=== PATIENT | male | born 1940 | race Caucasian/White ===

== ENCOUNTER 2016-12-05 17:32 | Emergency (ER) | payer MEDICARE, OTHER ==
--- NOTE | 2016-12-05 17:56 | ERNOTE ---
<Isael Temple - Last Filed: 12/05/16 19:40> TRA [facility] - General Date of Service: 12/05/16 Stated Complaint: UNKNOWN Time Seen by Provider: 12/05/16 17:39 Source: patient, EMS, RN notes reviewed Exam Limitations: other - patient's speech is difficult to understand. I suspect this is chronic. We will be calling the [facility] to get further detail - History of Present Illness Initial Comments: 76-year-old white male brought by EMS local [facility] due to fall. Patient apparently fell out of his bed earlier this morning. He complains of pain all over his whole body. long-term reports he is transferred to the [facility] emergency department for evaluation. The facility Facility performed lumbar, right hip, left hip, thoracic x-rays and lab tests. there Were no reported fractures. It is treated for chronic pain and had his usual dose of hydrocodone midday and another tablet late afternoon. long-term states that he seems to be somewhat lethargic and that his abdomen is distended. There is no reported loss of consciousness. There is no reports of head or neck injury. Occurred: this morning Allergies/Adverse Reactions: Allergies egg Allergy (Verified 12/05/16 18:14) lithium Allergy (Verified 12/05/16 18:14) naproxen Allergy (Verified 12/05/16 18:14) Penicillins Allergy (Verified 12/05/16 18:14) tomato Allergy (Verified 12/05/16 18:14) Home Medications: Home Medications Medication Instructions Recorded Last Taken Chlorpromazine HCl 100 mg PO TID 12/05/16 Unknown Citalopram Hydrobromide 20 mg PO DAILY 12/05/16 Unknown [Citalopram HBr] Divalproex Sodium 500 mg PO DAILY 12/05/16 Unknown Donepezil HCl 10 mg PO DAILY 12/05/16 Unknown Gabapentin 800 mg PO QID 12/05/16 Unknown Haloperidol [Haldol] 5 mg PO BID 12/05/16 Unknown Hydrocodone/Acetaminophen 1 each PO QID 12/05/16 Unknown [Hydrocodon-Acetaminoph 7.5-325] Levothyroxine Sodium [Synthroid] 25 mcg PO DAILY 12/05/16 Unknown Lurasidone HCl [Latuda] 80 mg PO DAILY 12/05/16 Unknown Memantine HCl [Namenda Xr] 28 mg PO DAILY 12/05/16 Unknown Nabumetone [Relafen] 500 mg PO BID 12/05/16 Unknown Oseltamivir Phosphate [Tamiflu] 75 mg PO DAILY 12/05/16 Unknown Phenytoin Sodium Extended 100 mg PO DAILY 12/05/16 Unknown Psyllium Seed (with Sugar) 6 gm PO DAILY 12/05/16 Unknown [Metamucil Powder] Senna 12/05/16 Unknown Vitamin E 400 unit PO DAILY 12/05/16 Unknown Review of Systems - Narrative Narrative: Review of systems is limited due to patient's baseline condition TRAUMA EXAM - [place] Coma Score Best Eye Response (Debra): (3) open to voice Best Verbal Response (Debra): (5) oriented Best Motor Response (Debra): (6) obeys commands Debra Total: 14 - Physical Exam General Appearance: Present: WD/WN Head Injury: Present: no evidence of injury Neurologic: Present: no motor/sensory deficits Extremity Exam: Present: no evidence of injury, normal range of motion, non- tender, other - no obvious signs of injury. No ecchymosis. No swelling. No focal tenderness. Back Exam: Present: normal inspection, no CVA tenderness, no vertebral tenderness Eye Exam: right eye: normal inspection, PERRL, EOMI ENT Exam: Present: hearing grossly normal, no evidence of ENT injury, no dental injury Cardiovascular/Respiratory: Present: regular rate, rhythm, normal peripheral pulses, normal breath sounds, no respiratory distress Gastrointestinal/Abdominal: Present: normal bowel sounds, distended Skin Exam: Present: normal color, warm/dry, no cyanosis ED Progress - VITAL SIGNS Patient's Vital Signs:: I have reviewed the patient's vital signs. - EKG EKG #1 EKG: RBBB EKG Read: Interp. by nm - EKG sinus tachycardia with rate 105. Right bundle- branch block, left anterior fascicular block, nonspecific ST-T wave changes. - TRANSFER OF CARE Physician Signing Out: Isael Temple Receiving Physician: Lynette Oleary Pending Results: CT/MRI results, Labs, Pain-control Expected Disposition: Transfer Departure - Departure Clinical Impression: Acute gallstone pancreatitis Abdominal pain Qualifiers: Abdominal location: unspecified location Qualified Code(s): R10.9 - Unspecified abdominal pain Disposition: Other health care facility Condition: Serious <Lynette Oleary - Last Filed: 12/05/16 21:45> TRA HPI - Immunization Immunization: IMMUNIZATION HX History of Influenza Vaccine More Information Required Hx Pneumococcal Vaccination More Information Required ED Progress - Date and Time Seen: Date and Time: 12/05/16 20:01 Sign out was received from the previous provider in regards to this patient is a 76-year-old who fell this morning. Among his multiple complaints of pain all over he does additionally have a distended belly and abdominal pain. based on my exam pt is stable but he does have diffuse abdominal tenderness and distant but present bowel sounds. imaging's tests of CT of the head C-spine and chest are within normal limits CT of abdomen shows signs consitent with pancreatitis. Patient's Gallbladder ultrasound reveals cholelithiasis and sludge and a stone in the neck of the gallbladder. Patient's lipase is 7000. His bili is 3. Family member is present at patient's bedside and informs me that patient is a and they request transfer to [facility]. in light of this patient's pancreatitis possibility of a common bile duct stone I explained to the patient and family that it would be in his best interest to be transferred to a facility with a higher level of care and availability of ERCP a son at [facility] in [place] was consultative and he stated that the patient was eligible for transfer to their facility. Dr. Londono at [facility] in [place] accepted this patient to their facility. 12/05/16 21:39 - VITAL SIGNS Patient's Vital Signs:: I have reviewed the patient's vital signs. Vital Signs - Last Taken Temp 36.5 C 12/05/16 17:36 Pulse 110 H 12/05/16 19:23 Resp 25 H 12/05/16 19:23 BP 160/76 12/05/16 19:23 Pulse Ox 95 12/05/16 19:23 - RESULTS AND ORDERS Patient's Lab Results:: I have reviewed the patient's lab results. Results and Orders: Abnormal/Pending Laboratory Last 24 HRS 12/05/16 12/05/16 12/05/16 18:15 18:14 17:00 RBC 4.04 L Hgb 12.6 L Hct 39.2 L MCH 31.2 H RDW 14.6 H MPV 10.2 H Immature Gran % (Auto) 0.60 H Immature Gran # (Auto) 0.06 H Neutrophils % 79.0 H Lymphocytes % 9.1 L Monocytes % 9.9 H Neutrophils # 7.3 H Lymphocytes # 0.8 L Sodium 143 H Plasma Sodium 143 H Chloride 107 H Random Glucose 129 H Total Bilirubin 1.4 H AST 180 H ALT 313 H Alkaline Phosphatase 222 H Lipase 7184 H Urine Protein 15 H Urine Glucose (UA) 100 H Urine Bilirubin 3 H Urine Ictotest Positive H Urine Bacteria 1+ H
--- OUTSIDE RECORDS SUMMARY | 2016-12-05 18:14 | XMS REPORT | Continuity of Care Document ---
:1940 Author Organization [facility] ([facility]) Address [address] [place] [address] Phone [phone] Care Team Providers Name Role Phone Unavailable Primary Care Provider Unavailable Source Comments This disclosure is being made pursuant to the Care Everywhere program, applicable federal and state laws, and may not contain all informaitonavailable regarding this patient.[facility] ([facility]) Active Allergies and Adverse Reactions Not on File Current Medications Not on file Active Problems Not on file Social History Tobacco Use Types Packs/Day Years Used Date Never Assessed Plan of Care Health Maintenance Due Date Last Done Comments Hepatitis B Vaccine (1 of 3 - Primary Series) 1940 Tdap Vaccine 1952 Lipid Disorder Screening 1959 Td Vaccine 1959 Colonoscopy 1991 Prostate Cancer Screening 1991 Zoster Vaccine 2001 Pneumococcal Vaccine (1 of 2 - PCV13) 2006 Influenza Vaccine: Seasonal (#1) 04/28/2016 HCC Annual Coding Diabetes without Complication 09/28/2016 Results from Last 3 Months Not on file
--- OUTSIDE RECORDS SUMMARY | 2016-12-05 18:14 | XMS REPORT | Continuity of Care Document ---
:1940 Author Organization [facility] [place] [address] Care Team Providers Name Role Phone Provider, None Per Patient Primary Care Provider Unavailable Source Comments This disclosure is being made pursuant to the HouseTrip program and maynot contain all information available regarding this patient.[facility] Active Allergies and Adverse Reactions Allergen Noted Date Severity Reactions Comments Eggs Or Egg-Derived 06/16/2012 Other (See Comments) Unspecified Products Starke 06/16/2012 High Hives Naprosyn 06/16/2012 Other (See Comments) Unspecified Other 06/16/2012 Low Nausea Only,Other (See Tomatoes-Stomachache Comments) Pcn 06/16/2012 High Respiratory Distress Current Medications Be aware that medications may not be up to date as of this document. Alwaysverify current medications with the patient. Prescription Sig. Disp. Refills Start Date End Date Status famotidine (PEPCID) Take 40 mg by mouth Active 20 MG tablet nightly. Indications: Gastroesophageal Reflux Disease levothyroxine Take 25 mcg by mouth Active (SYNTHROID, every morning. LEVOTHROID) 25 MCG Indications: tablet Underactive Thyroid megestrol (MEGACE) Take 40 mg by mouth 2 Active 40 MG tablet (two) times daily. Indications: supplement phenytoin Take 200 mg by mouth 3 Active (DILANTIN) 100 MG (three) times daily. ER capsule Per fpc MAR states scheduled dose times as 0800, 1200, 1700 cloZAPine Take 100 mg by mouth Active (CLOZARIL) 100 MG daily. tablet bisacodyl Place 10 mg rectally Active (DULCOLAX) 10 MG daily. If no BM x4 suppository days Indications: Emptying of the Bowel, Constipation magnesium Take 30 mLs by mouth Active hydroxide, as needed. If no BM x3 concentrate, (MILK days Indications: OF MAGNESIA) 2400 Constipation MG/10ML SUSP acetaminophen Take 650 mg by mouth 4 Active (TYLENOL) 325 MG (four) times daily as tablet needed. Indications: Fever, Pain nitroGLYCERIN Place 0.4 mg under the Active (NITROSTAT) 0.4 MG tongue every 5 (five) SL tablet minutes as needed. saline (AYR) 0.65 % 1 spray by Nasal route Active (SOLN) nasal spray every hour as needed. traMADol (ULTRAM) Take 50 mg by mouth Active 50 MG tablet every 4 (four) hours as needed. Indications: Moderate to Moderately Severe Pain Artificial Tear Apply 1 drop to eye as Active Solution (SM needed. Both eyes ARTIFICIAL TEARS Indications: Dry Eyes OP) (Inactive) Sodium Phosphates Place rectally. Use Active (SM ENEMA RE) every 5 days if no BM Indications: Constipation Calcium Take 1 tablet by mouth Active Carbonate-Vitamin D 3 (three) times daily (OYST-SAURAV-D 500 PO) with meals. aluminum Take 30 mLs by mouth 3 355 mL 0 06/22/2012 Active hydroxide-magnesium (three) times daily as hydroxide-simethico needed for ne (MYLANTA) Indigestion. 200-200-20 MG/5ML suspension donepezil (ARICEPT) Take 2 tablets by 30 tablet 0 06/22/2012 Active 5 MG tablet mouth daily with supper. hydrOXYzine Take 2 tablets by 30 tablet 0 06/22/2012 Active (ATARAX) 25 MG mouth 4 (four) times tablet daily. Per fpc [facility] states administration times as 0800, 1200, 1700, 2000. cloZAPine Take 2 tablets by 60 tablet 0 06/22/2012 Active (CLOZARIL) 200 MG mouth nightly. tablet memantine (NAMENDA) Take 1 tablet by mouth 30 tablet 0 06/22/2012 Active 10 MG tablet 2 (two) times daily. mirtazapine Take 1 tablet by mouth 30 tablet 0 06/22/2012 Active (REMERON) 30 MG nightly as needed tablet (insomnia). polyethylene glycol Take 17 g by mouth 2 14 each 0 06/22/2012 Active (GLYCOLAX) packet (two) times daily as needed for Constipation. Indications: Constipation traZODone (DESYREL) Take 1 tablet by mouth 90 tablet 0 06/22/2012 Active 50 MG tablet 4 (four) times daily as needed for Sleep (anxiety, agitation). Active Problems Not on file Social History Tobacco Use Types Packs/Day Years Used Date Never Assessed Last Filed Vital Signs Vital Sign Reading Time Taken Blood Pressure 122/70 06/22/2012 8:00 AM CDT Pulse 88 06/22/2012 8:00 AM CDT Temperature 36.7 C (98.1 F) 06/22/2012 8:00 AM CDT Respiratory Rate 16 06/22/2012 8:00 AM CDT Height 1.676 m (5' 6") 06/16/2012 8:05 PM CDT Weight 65.4 kg (144 lb 2.9 oz) 06/17/2012 7:00 AM CDT Body Mass Index 23.28 06/17/2012 7:00 AM CDT Oxygen Saturation 98% 06/22/2012 8:00 AM CDT Plan of Care Health Maintenance Due Date Last Done Comments Tetanus/Pertussis (1 - Tdap) 1960 Colonoscopy 1991 Well Adult Visit 1991 Zoster Vaccine 60+ 2001 Pneumococcal Low/Medium Risk 65+ (1 of 2 - PCV13) 2006 Retired-INFLUENZA VACCINE 05/29/2016 Results from Last 3 Months Not on file
[2016-12-05 18:20] LABS: Urine Bilirubin 3 mg/dl (NEGATIVE); Urine Blood Negative /ul (NEGATIVE); Urine Ketone 5 mg/dL (NEGATIVE); Urine Nitrite Negative (NEGATIVE); Urine Protein 15 mg/dL (NEGATIVE); Urine Specific Gravity >=1.030 SP.GR. (1.005-1.030); Urine Urobilinogen Normal (NORMAL)
[2016-12-05 18:20] LABS: Hematocrit 39.2 % (42.0-52.0); Hemoglobin 12.6 gm/dL (13.5-18.0); Mean Corpuscular Hemoglobin 31.2 pg (27-31); Mean Corpuscular Hgb Conc 32.1 g/dl (32-36); Mean Platelet Volume 10.2 fl (6.0-9.5); Neutrophil # 7.3 K/mm3 (1.3-6.0); Platelet Count 182 K/mm3 (150-450); Red Blood Count 4.04 M/mm3 (4.7-6.0); Red Cell Distribution Width 14.6 % (11.5-14.0); White Blood Count 9.3 K/mm3 (4.0-10.5)
[2016-12-05 18:31] LABS: Urine Appearance Clear; Urine Bacteria 1+; Urine Color Amber; Urine Mucus TRACE; Urine RBC 0-5 /hpf (0-5); Urine WBC 0-5 /hpf (0-5)
[2016-12-05 18:39] LABS: ALT 313 U/L (19-67); AST 180 U/L (0-48); Albumin * 3.6 gm/dl (3.4-5.0); Alkaline Phosphatase * 222 U/L (50-170); Anion Gap 11.8 mmol/L (6.8-13.8); BUN/Creatinine Ratio 15.6 (9.0-21.6); Bilirubin, Total 1.4 mg/dL (0.0-1.1); Blood Urea Nitrogen 14 mg/dL (6-23); Ca. Corrected For Albumin 8.8 mg/dL (8.4-10.2); Calcium * 8.8 mg/dL (7.9-10.9); Carbon Dioxide 27.6 mmol/L (24-32.6); Chloride 107 mmol/L (97-106); Glucose * 129 mg/dL (70-110); Potassium 3.4 mmol/L (3.4-4.6); Sodium 143 mmol/L (132-142); Total Protein 7.4 gm/dL (6.2-8.2)
[2016-12-05 18:42] LABS: Troponin I Less than 0.017 ng/ml (0.00-0.10)
[2016-12-05 18:53] LABS: Prothrombin Time (Patient) 10.7 Seconds (9.4-11.4)
[2016-12-05 18:55] LABS: INR 1.03 INR (0.90-1.10)
[2016-12-05 18:59] LABS: Lipase 7184 U/L (73-393)
[2016-12-05 21:10] VITALS: BP 147/64
[2016-12-05] MEDS ORDERED: NORMAL SALINE 1,000 ML IV ONE (22:47)
== END 2016-12-05 23:40 | disposition short-term general hospital (02) ==
LOC: ER 17:32
DX: K85.10 Biliary acute pancreatitis without necrosis or infection (principal); R10.9 Unspecified abdominal pain